=== PATIENT | male | born 1995 | race African-American/Black ===

== ENCOUNTER 2025-04-30 09:55 | Emergency (ER) | payer OTHER ==
[~2025-04-30] VITALS: Ht 180.3 cm; Wt 70.5 kg
[2025-04-30 10:09] VITALS: BP 125/77; PULSE 74; RESP 18; TEMP 97.9; O2SAT 100
[2025-04-30] MEDS ORDERED: ALBU18HF12 IH (10:16)
[2025-04-30] MEDS: ACETAMINOPHEN 500 MG TABLET PO ONE (10:52)
[2025-04-30] MEDS ORDERED: ACET-3385 PO (10:57)
== END 2025-04-30 11:00 | disposition home or self-care (01) ==
LOC: EMS 09:55
DX: S93.402A Sprain of unspecified ligament of left ankle, initial encounter (principal); J45.909 Unspecified asthma, uncomplicated; F12.90 Cannabis use, unspecified, uncomplicated; F17.210 Nicotine dependence, cigarettes, uncomplicated; Z98.890 Other specified postprocedural states; Z88.6 Allergy status to analgesic agent; Z79.899 Other long term (current) drug therapy; X58.XXXA Exposure to other specified factors, initial encounter; Y93.89 Activity, other specified; Y92.89 Other specified places as the place of occurrence of the external cause; Y99.8 Other external cause status
CPT/HCPCS: 99283